=== PATIENT | male | born 1960 | race African-American/Black ===

== ENCOUNTER → 2017-12-04 | Outpatient (CLI) | payer OTHER, MEDICARE | END | disposition home or self-care (01) | LOC: RAH 08:18 | PROVIDERS: ATTEND Family Medicine | DX: K80.20 Calculus of gallbladder without cholecystitis without obstruction (principal); K74.60 Unspecified cirrhosis of liver; R18.8 Other ascites | CPT/HCPCS: 76700 ==

== ENCOUNTER 2017-12-25 09:44 | Observation (INO) | payer MEDICARE, OTHER ==
[~2017-12-25] VITALS: Ht 177.8 cm; Wt 61.2 kg
[2017-12-25 10:58] LABS: BASOPHILS % (AUTO) 0.9 % (0.0-5.0); EOSINOPHILS % (AUTO) 0.8 % (0.0-8.0); HEMATOCRIT 35.3 % (42-54); LYMPHOCYTES % (AUTO) 20.6 % (21.0-51.0); MEAN CORPUSCULAR HEMOGLOBIN 33.7 pg (27.0-33.0); MEAN CORPUSCULAR VOLUME 96.4 fL (79-99); NEUTROPHILS % (AUTO) 65.7 % (40.0-77.0); NUCLEATED RED BLOOD CELLS 0.1 % (0.0-0.19); PLATELET COUNT (AUTO) 104 K/uL (130-400); RED BLOOD CELL COUNT(AUTO) 3.66 MIL/uL (4.50-6.20); RED CELL DISTRIBUTION WIDTH 13.7 % (11.0-15.5); WHITE BLOOD COUNT (AUTO) 6.9 K/uL (4.8-10.8)
[2017-12-25 11:34] LABS: ALBUMIN 1.6 g/dL (3.5-5.0); BILIRUBIN,TOTAL 2.5 mg/dL (0.2-1.0); CREATININE 0.8 mg/dL (0.5-1.5); POTASSIUM 4.4 mmol/L (3.5-5.1); TOTAL PROTEIN, SERUM 8.5 g/dL (6.0-8.3)
[2017-12-25] MEDS ORDERED: SODIUM CHLORIDE 0.9% 1000ML 1,000 ML IV ONE (13:38)
[2017-12-25] MEDS ORDERED: LIDOCAINE HCL MPF 1% 5ML VIAL ONE (14:18)
[2017-12-25] MEDS ORDERED: ALBUMIN (HUMAN) 25% 200 ML IV ONE (14:54)
[2017-12-25 15:34] LABS: SPECIMENTYPE,BODY FLUID ASCITES FLUID
[2017-12-25 15:35] LABS: TOTAL VOLUME,BODY FLUID 6500 mL
[2017-12-25 16:17] VITALS: BP 113/72
[2017-12-25 18:15] LABS: APPEARANCE BODY FLUID SLIGHTLY CLOUDY (CLEAR); BODY FLUID WBC 110 /cu. mm.; COLOR,BODY FLUID YELLOW (LT YELLOW)
[2017-12-25 18:16] LABS: BODY FLUID RBC 87 /cu. mm.
[2017-12-25 18:21] LABS: BF LYMPHOCYTE 45 %; BF MESOTHELIAL 1 %; BF MONOCYTE 2 %; BF OTHER CELLS 10
[2017-12-25] MEDS ORDERED: ACETAMINOPHEN 325 MG TAB PO PRN (19:45)
[2017-12-25] MEDS ORDERED: LACTULOSE 20 GM/30 ML UDCUP PO PRN (19:45)
[2017-12-25] MEDS ORDERED: ONDANSETRON HCL MDV 20ML 2 MG/ML VIAL IVP PRN (19:45)
[2017-12-25 20:00] VITALS: BP_SYST 121; BP_SYST 128; BP_DIAS 60; BP_DIAS 72
[2017-12-25] MEDS ORDERED: FAMOTIDINE/PF 20 MG/2 ML VIAL IV SCH (21:00)
[2017-12-26] VITALS: BP 94/53
[2017-12-26 04:00] VITALS: BP 111/65
[2017-12-26 04:57] LABS: HEMATOCRIT 30.9 % (42-54); MEAN CORPUSCULAR HEMOGLOBIN 33.3 pg (27.0-33.0); MEAN CORPUSCULAR HGB CONC 34.6 g/dL (32.0-36.0); MEAN CORPUSCULAR VOLUME 96.3 fL (79-99); PLATELET COUNT (AUTO) 108 K/uL (130-400); RED CELL DISTRIBUTION WIDTH 13.8 % (11.0-15.5); WHITE BLOOD COUNT (AUTO) 6.3 K/uL (4.8-10.8)
[2017-12-26] MEDS ORDERED: PANTOPRAZOLE 40 MG/VIAL IVP SCH (09:00)
== END 2017-12-26 08:00 | disposition left against medical advice (07) ==
LOC: EDH 09:44 → EDHIP 13:35 → 3BH 15:58
PROVIDERS: ADMIT Internal Medicine; ATTEND Internal Medicine
DX: R18.8 Other ascites (principal); R10.9 Unspecified abdominal pain; E87.1 Hypo-osmolality and hyponatremia; F17.210 Nicotine dependence, cigarettes, uncomplicated
CPT/HCPCS: 36415 ×2; 49083; 74176; 80048; 80053; 82140; 83690; 85025; 85027; 87071; 87205; 88108; 88305; 89051; 96374; 99285; G0378 ×18; J3490 ×2; J7030; P9046; 96365

== ENCOUNTER → 2018-01-06 | Outpatient (CLI) | payer OTHER ==
[~2018-01-06] MED LIST: ALBUMIN (HUMAN) 25% 200 ML IV SCH
[2018-01-06 12:14] LABS: APPEARANCE BODY FLUID CLEAR (CLEAR); COLOR,BODY FLUID YELLOW (LT YELLOW); SPECIMENTYPE,BODY FLUID ASCITES; TOTAL VOLUME,BODY FLUID 7300 mL
[2018-01-06 12:15] LABS: BODY FLUID RBC 124 /cu. mm.; BODY FLUID WBC 167 /cu. mm.
[2018-01-06 12:36] LABS: BF LYMPHOCYTE 35 %; BF MESOTHELIAL 60 %; BF MONOCYTE 3 %
== END | disposition home or self-care (01) ==
LOC: RAH 08:06
PROVIDERS: ATTEND Emergency Medicine Emergency Medical Services
DX: R18.8 Other ascites (principal)
CPT/HCPCS: 49083; 87071; 87205; 89051; 96365; A4215; P9046

== ENCOUNTER 2018-01-19 07:53 | Emergency (ER) | payer OTHER ==
[2018-01-19 10:05] LABS: EOSINOPHILS % (AUTO) 2.9 % (0.0-8.0); LYMPHOCYTES % (AUTO) 23.4 % (21.0-51.0); MEAN CORPUSCULAR HEMOGLOBIN 31.9 pg (27.0-33.0); MEAN CORPUSCULAR HGB CONC 34.4 g/dL (32.0-36.0); MEAN CORPUSCULAR VOLUME 92.8 fL (79-99); MONOCYTES % (AUTO) 12.3 % (3.0-13.0); NEUTROPHILS % (AUTO) 60.4 % (40.0-77.0); NUCLEATED RED BLOOD CELLS 0.1 % (0.0-0.19); PLATELET COUNT (AUTO) 164 K/uL (130-400); RED BLOOD CELL COUNT(AUTO) 3.23 MIL/uL (4.50-6.20); RED CELL DISTRIBUTION WIDTH 13.7 % (11.0-15.5); WHITE BLOOD COUNT (AUTO) 7.4 K/uL (4.8-10.8)
[2018-01-19 10:13] LABS: CREATININE 1.1 mg/dL (0.5-1.5); POTASSIUM 4.1 mmol/L (3.5-5.1)
[2018-01-19 10:16] LABS: INR 1.49 (0.85-1.15); PARTIAL THROMBOPLASTIN TIME 31.6 SEC (26.3-35.5); PROTHROMBIN TIME 15.5 SEC (9.6-11.6)
[2018-01-19 10:18] LABS: ALBUMIN 1.7 g/dL (3.5-5.0); BILIRUBIN,TOTAL 2.6 mg/dL (0.2-1.0); TOTAL PROTEIN, SERUM 7.9 g/dL (6.0-8.3)
[2018-01-19] MEDS ORDERED: ALBUMIN (HUMAN) 25% 200 ML IV SCH ×2 (11:30→12:00)
[2018-01-19] MEDS ORDERED: ALBUMIN (HUMAN) 25% 100 ML IV ONE (12:00)
[2018-01-19 15:47] LABS: APPEARANCE BODY FLUID SLIGHTLY CLOUDY (CLEAR); COLOR,BODY FLUID YELLOW (LT YELLOW); SPECIMENTYPE,BODY FLUID ASCITES
[2018-01-19 15:48] LABS: BODY FLUID RBC 100 /cu. mm.; BODY FLUID WBC 99 /cu. mm.; TOTAL VOLUME,BODY FLUID 9300 mL
[2018-01-19 15:53] LABS: BF LYMPHOCYTE 33 %; BF MESOTHELIAL 9 %; BF MONOCYTE 1 %
== END 2018-01-19 13:06 | disposition home or self-care (01) ==
LOC: EDH 07:53
DX: R18.8 Other ascites (principal); K74.60 Unspecified cirrhosis of liver; Z72.0 Tobacco use
CPT/HCPCS: 36415; 49083; 80053; 85025; 85610; 85730; 87071; 87205; 89051; 99285; A4215; J3490; P9046; 96365

== ENCOUNTER → 2018-01-28 | Outpatient (CLI) | payer OTHER ==
[~2018-01-28] MED LIST changes: +ALBUMIN (HUMAN) 25% 200 ML IV ONE; -ALBUMIN (HUMAN) 25% 200 ML IV SCH; +LIDOCAINE HCL 1% 20 ML VIAL ONE; +LIDOCAINE HCL MPF 1% 5ML VIAL ONE
== END | disposition home or self-care (01) ==
LOC: RAH 08:59
PROVIDERS: ATTEND Emergency Medicine Emergency Medical Services
DX: K70.31 Alcoholic cirrhosis of liver with ascites (principal); F31.9 Bipolar disorder, unspecified; G89.29 Other chronic pain; Z87.891 Personal history of nicotine dependence; H52.10 Myopia, unspecified eye; Z79.899 Other long term (current) drug therapy
CPT/HCPCS: 49083; 96365; A4215; P9046; J3490

== ENCOUNTER 2019-12-10 01:01 | Emergency (ER) | payer OTHER ==
[2019-12-10] MEDS ORDERED: HYDROCODONE/ACETAMINOPHEN 5/325 MG TAB ONE (02:07)
== END 2019-12-10 02:58 | disposition home or self-care (01) ==
LOC: EDH 01:01
DX: G89.29 Other chronic pain (principal); M54.5 Low back pain; F20.9 Schizophrenia, unspecified; Z88.0 Allergy status to penicillin; Z72.0 Tobacco use

== ENCOUNTER 2020-05-01 15:05 | Emergency (ER) | payer OTHER | END 2020-05-01 15:57 | disposition home or self-care (01) | LOC: EEVIPCON 15:05 → EDH 15:05 | DX: M54.5 Low back pain (principal); Z88.0 Allergy status to penicillin ==

== ENCOUNTER 2021-07-03 01:29 | Emergency (ER) | payer OTHER ==
[2021-07-03 01:30] VITALS: BP 131/82
== END 2021-07-03 01:42 | disposition left against medical advice (07) ==
LOC: EDH 01:29
DX: S09.90XA Unspecified injury of head, initial encounter (principal); Z53.21 Procedure and treatment not carried out due to patient leaving prior to being seen by health care provider; Y08.89XA Assault by other specified means, initial encounter; Y93.89 Activity, other specified; Y92.89 Other specified places as the place of occurrence of the external cause; Y99.8 Other external cause status